=== PATIENT | male | born 1945 | race Caucasian/White ===

== ENCOUNTER 2016-11-14 07:30 | Inpatient (IN) | payer BC ==
--- NOTE | 2016-11-09 01:15 | HP ---
HISTORY AND PHYSICAL: DATE OF SURGERY/ADMISSION: 11/14/16 PROCEDURE: Right total knee arthroplasty. HISTORY OF PRESENT ILLNESS: Mr. Vences is a 71-year-old gentleman with complaints of right knee pain secondary to advanced osteoarthritis. He has failed conservative management and has elected to proceed with the right total knee arthroplasty, which is scheduled on 11/14/[address] Lara. PAST MEDICAL HISTORY: 1. Chronic kidney disease. 2. Hypertension. 3. Anemia. 4. High cholesterol. 5. Hypothyroidism. 6. Acid reflux. 7. Skin cancer. PAST SURGICAL HISTORY: 1. Thyroid ablation. 2. Tonsillectomy. 3. Lumbar diskectomy. 4. Sinus surgery. 5. Cataract removal. 6. Quadriceps tendon repair on the left. CURRENT MEDICATIONS: 1. AcipHex. 2. Aspirin. 3. Avodart. 4. Calcitriol. 5. Diltiazem. 6. Ferrous sulfate. 7. Levoxyl. 8. Nasonex. 9. Renvela. 10. Simvastatin. 11. Uroxatral. 12. Zantac. 13. Konsyl fiber. 14. AREDS softgel. 15. Vitamin B12. ALLERGIES: To SULFA, JEMIMA INHIBITORS, ANGIOTENSIN RECEPTOR BLOCKERS, IVP DYE, and ELAVIL. FAMILY HISTORY: Heart disease, prostate cancer, kidney disease, breast cancer, pituitary cancer. SOCIAL HISTORY: He is a 71-year-old gentleman. He lives with his . He does not smoke. He rarely uses alcohol. He denies the use of drugs. 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 REVIEW OF SYSTEMS: A complete 14-point review of systems with the patient is positive for chronic kidney disease and anemia. He denies history of DVT, PE, anesthesia problems, MRSA, hepatitis C, or HIV. PHYSICAL EXAMINATION GENERAL: He is well developed, well nourished, in no acute distress. VITAL SIGNS: He stands 5 feet 11 inches tall, weighs 209 pounds. His blood pressure is 144/74. His heart rate is 65. HEENT: Normocephalic, atraumatic. NECK: Supple. No palpable lymph nodes. Trachea is midline. CARDIO: Regular rate and rhythm. Strong S1, S2. No murmurs, gallops, or rubs. No peripheral edema. PULMONARY: The lungs are clear to auscultation bilaterally. No wheezes, rhonchi, or rale. ABDOMEN: Soft, nontender, nondistended. MUSCULOSKELETAL: Right lower extremity, the skin is intact. He has moderate joint effusion. Tenderness over the medial and lateral joint line. Full range of motion. He has 2+ dorsalis pedis pulses. Intact sensation with pinprick and light touch over both legs and feet. NEUROLOGIC: He is alert and oriented x3. Cranial nerves II through XII are intact. ASSESSMENT AND PLAN: Mr. Vences is a 71-year-old gentleman with advanced osteoarthritis of his right knee. He has failed conservative management and has elected to proceed with a right knee arthroplasty, which is scheduled for with Dr. Lara. Dr. Lara discussed the risks and benefits of the surgery at today's visit and all of his questions were answered. Coumadin and Colace were sent to his pharmacy for postoperative DVT prophylaxis and for opioid-induced constipation, for pain control oxycodone 5 mg was sent to his pharmacy. He will follow up with Dr. Lara 10 to 14 days after the surgery. AKIN BENSON [id number]/[facility] #: [id number] RASHIDA
[~2016-11-14 07:30] MED LIST: Buffered Lidocaine 1% SYR 3ML* 3 ML/SYR SYRINGE INTRADERM ONE; Metoclopramide TAB* 10 MG PO ONE; NS 0.9% 1000 ML* 1,000 ML IV SCH; Sodium Citrate/Citric Acid* 15 ML UDC PO ONE
[2016-11-14] MEDS ORDERED: Sodium Citrate/Citric Acid* 15 ML UDC ONE (08:21)
[2016-11-14] MEDS ORDERED: ceFAZolin 2 GM PREMIX (*) 2 GM/50 ML BAG IVPB ONE (08:21)
[2016-11-14] MEDS ORDERED: Metoclopramide TAB* 10 MG ONE (08:21)
[2016-11-14] MEDS ORDERED: Propofol* 500 MG/50 ML BTL ONE (09:30)
[2016-11-14] MEDS ORDERED: Propofol* 10 MG/ML 20 ML BTL IV PUSH ONE (09:30)
[2016-11-14] MEDS ORDERED: Bupivacaine 0.5% SDV PF* 30 ML VIAL ONE ×2 (09:30→11:56)
[2016-11-14] MEDS ORDERED: Lidocaine 2% PF * 5 ML VIAL ONE (09:30)
[2016-11-14] MEDS ORDERED: ROPIVACAINE 5 MG/ML 30 ML BTL (0.5%) ONE (09:30)
[2016-11-14] MEDS ORDERED: Ondansetron INJ* 2 MG/ML VIAL ONE ×2 (09:30→14:14)
[2016-11-14] MEDS ORDERED: fentaNYL* 50 MCG/ML 2 ML VIAL (100 MCG VIAL) ONE (09:30)
[2016-11-14] MEDS ORDERED: KETAMINE HCL* 50 MG/ML 10 ML VIAL ONE (09:30)
[2016-11-14] MEDS ORDERED: Dexamethasone IV* 4 MG/ML 1 ML (4 MG) ONE (09:30)
[2016-11-14] MEDS ORDERED: Midazolam* 1 MG/ML 5 ML VIAL (5 MG) ONE (09:31)
[2016-11-14] MEDS ORDERED: Phenylephrine INJ* 10 MG/ML 1 ML VIAL (10 MG) ONE (09:31)
[2016-11-14] MEDS ORDERED: Bupivacaine 0.5% W/EPI SDV* 30 ML VIAL ONE (09:57)
[2016-11-14] MEDS ORDERED: Morphine PF AMP (0.5MG/ML)* 5 MG/10 ML AMP ONE (10:19)
[2016-11-14] MEDS ORDERED: Ondansetron INJ* 2 MG/ML VIAL IV PRN ×2 (12:01→12:04)
[2016-11-14] MEDS ORDERED: fentaNYL* 50 MCG/ML 2 ML VIAL (100 MCG VIAL) IV PRN (12:01)
[2016-11-14] MEDS ORDERED: Phenylephrine INJ* 50 MG in NS 0.9% 250 ML* 245 ML IV PRN (12:01)
[2016-11-14] MEDS ORDERED: Naloxone* 0.4 MG/ML 1 ML VIAL IV PRN (12:04)
[2016-11-14] MEDS ORDERED: oxyCODONE/Acetamin 5/325 MG* TAB PO PRN ×2 (12:04)
[2016-11-14] MEDS ORDERED: diPHENhydraMINE IV* 50 MG/ML 1 ml VIAL (BENADRYL) IV PRN ×2 (12:04→13:03)
[2016-11-14] MEDS ORDERED: Bisacodyl SUPP* 10 MG SUPP PR PRN (13:03)
[2016-11-14] MEDS ORDERED: Acetaminophen TAB* 325 MG PO PRN (13:03)
[2016-11-14] MEDS ORDERED: Polyethylene Glycol 3350* 17 GM PACKET PO PRN (13:03)
[2016-11-14] MEDS ORDERED: Magnesium Hydroxide LIQ* 30 ML UDC PO PRN (13:03)
--- NOTE | 2016-11-14 14:09 | RAD ---
HISTORY: Status post right total knee arthroplasty COMPARISONS: August 11, 2016 VIEWS: 2, Frontal and lateral views of the right knee FINDINGS: BONE DENSITY: Normal. BONES: The patient is status post right knee arthroplasty. There is no appreciable hardware failure or osteolysis. JOINTS: The patient is status post right knee arthroplasty ALIGNMENT: There is no dislocation. SOFT TISSUES: There is post surgical change to the soft tissue OTHER FINDINGS: None. IMPRESSION: STATUS POST RIGHT KNEE ARTHROPLASTY
[2016-11-14] MEDS: Clindamycin 600 MG IVPREMIX(* 600 MG/50 ML SDV IV SCH (16:30)
[2016-11-14] MEDS ORDERED: Warfarin TAB(*) 6 MG PO ONE (17:00)
[2016-11-14] MEDS: Sevelamer TAB* 800 MG PO SCH (17:33)
[2016-11-14] MEDS: Atorvastatin* 20 MG TAB PO SCH (17:35)
[2016-11-14] MEDS: Finasteride TAB* 5 MG PO SCH (17:35)
[2016-11-14] MEDS: Cyanocobalamin TAB* 500 MCG PO SCH (17:35)
[2016-11-14] MEDS: Calcitriol CAP* 0.25 MCG PO SCH (17:35)
[2016-11-14] MEDS: ALFUZOSIN 10 MG PO SCH (17:36)
[2016-11-14] MEDS ORDERED: DiMENhydriNATE IV* 50 MG/ML VIAL IV PUSH PRN (20:44)
[2016-11-14] MEDS: Docusate CAP* 100 MG PO SCH (20:55)
[2016-11-14] MEDS ORDERED: DiMENhydriNATE IV* 50 MG/ML VIAL IV PUSH ONE (21:00)
[2016-11-15] MEDS: Clindamycin 600 MG IVPREMIX(* 600 MG/50 ML SDV IV SCH ×2 (00:56→09:50)
[2016-11-15] MEDS ORDERED: Morphine INJ* 2 MG/ML 1 ML CARPUJECT IV PRN (02:30)
[2016-11-15] MEDS ORDERED: Ondansetron INJ* 2 MG/ML VIAL IV PRN (02:30)
[2016-11-15] MEDS ORDERED: Ondansetron TAB* 4 MG PO PRN (02:30)
[2016-11-15] MEDS: oxyCODONE/Acetamin 5/325 MG* TAB PO PRN ×4 (03:00→16:14)
[2016-11-15 07:09] LABS: Hematocrit 25 % (42-52); Hemoglobin 8.2 g/dl (14.0-18.0)
[2016-11-15 07:23] LABS: BUN/Creatinine Ratio 10.6 (8-20); Calcium 8.8 mg/dL (8.6-10.3); EGFR African American 19.4 (>60); Potassium 4.8 mmol/L (3.5-5.0)
[2016-11-15] MEDS: Sevelamer TAB* 800 MG PO SCH ×3 (07:46→16:13)
--- NOTE | 2016-11-15 07:50 | PN ---
Progress Note - Progress Note SOAP: Subjective: Pt. reports pain is controlled. He is drinking and eating. Objective: RLE - drain removed, tip intact with 300 cc ss drainage. distally +df/pf, full sens lt, 2+ dp pulse. Vital Signs: Temp Pulse Resp BP Pulse Ox 98.5 F 68 16 136/64 97 11/15/16 07:24 11/15/16 07:24 11/15/16 07:44 11/15/16 07:24 11/15/16 07:24 Laboratory Results - last 24 hr 11/15/16 11/15/16 11/15/16 06:52 06:54 06:54 Hgb 8.2 L Hct 25 L INR (Anticoag Therapy) 0.94 Sodium 138 Potassium 4.8 Chloride 108 Carbon Dioxide 22 Anion Gap 8 BUN 42 H Creatinine 3.97 H Est GFR ( Amer) 19.4 Est GFR (Non-Af Amer) 15.0 BUN/Creatinine Ratio 10.6 Glucose 123 H Calcium 8.8 Assessment: 71 yo M pod 1 s/p RTKA Plan: wbat rle pt/ot - mobilize today nuno removed this am drain removed xrays satisfactory Dr. Lozano following patient and will decide on fluid management today in the setting of chronic renal failure.
[2016-11-15] MEDS ORDERED: Levothyroxine TAB* 150 MCG TAB PO SCH (09:00)
[2016-11-15] MEDS: Diltiazem CD CAP* 180 MG PO SCH (09:49)
[2016-11-15] MEDS: Docusate CAP* 100 MG PO SCH ×2 (09:49→20:26)
[2016-11-15] MEDS: Vitamin THERAPEUTIC TAB PO SCH (10:34)
[2016-11-15] MEDS ORDERED: Enoxaparin(*) 30 MG/0.3 ML SYR SUBCUT SCH (12:00)
[2016-11-15] MEDS: Heparin VIAL(*) 5000 UNITS/ML VIAL (FIVE THOUSAND) SUBCUT SCH ×2 (12:08→20:26)
--- NOTE | 2016-11-15 12:53 | OP ---
DATE OF OPERATION: 11/14/16 - ROOM #347 DATE OF : 47 SURGEON: Amelie Lara MD INSTRUMENTAL MUSIC TEACHER: AKIN Vincent ANESTHESIOLOGIST: Bronson Vazquez MD ANESTHESIA: Spinal PRE-OPERATIVE DIAGNOSIS: Severe end-stage degenerative osteoarthritis of the right knee joint. POST-OPERATIVE DIAGNOSIS: Severe end-stage degenerative osteoarthritis of the right knee joint. OPERATIVE PROCEDURE: Right total knee arthroplasty. TOURNIQUET TIME: 51 minutes. EBL: 250 cc. COMPLICATIONS: None. SPECIMEN: Bone and cartilage from the right knee joint sent to pathology. HARDWARE USED: [employer] cemented total knee arthroplasty hardware for the femur and Oxinium size 7 right femoral component posterior stabilized. For the tibia, size 5 right tibial base plate. For the insert, a 9 mm posterior stabilized articular insert, and for the patella 38, 3-peg all poly patella. BRIEF HISTORY/INDICATION: Mr. Vences is a 71-year-old gentleman with years of increasingly severe right knee pain. He failed conservative treatment with the anti-inflammatories, pain medication, intra-articular injections, physical therapy, and brace wear. Radiographs confirmed [id number] arthritis. The patient elected to undergo right total knee arthroplasty due to continued pain and decreased quality of life. Informed consent was obtained from the patient. He understood the risks of the surgery included but were not limited to bleeding, infection, damage to nearby structures, continued pain, need for further surgery, intraoperative fracture, nerve palsy, hardware failure or loosening, stroke, heart attack, blood clot, and . The patient also understood that his chronic renal failure did put him at increased risk for further renal problems. He was cleared for surgery by his digital performance analyst and primary care physician. INTRAOPERATIVE FINDINGS: Intraoperatively, the patient was noted to have severe tricompartmental arthritis with loss of cartilage and exposed subchondral bone. He was noted to have osteopenia throughout the case. DESCRIPTION OF PROCEDURE: Mr. Vences was identified in the preanesthesia unit. His right lower extremity was marked as the correct operative site. Informed consent was signed and placed in the chart. The patient was taken to the operating room and placed under spinal anesthesia with an adductor nerve block. Porras catheter was placed. Thigh high tourniquet was placed on the right thigh. The right lower extremity was prepped and dapped in the usual sterile fashion. Preop time-out was made to correctly identify the patient's side and site. Appropriate perioperative antibiotics were given within 1 hour of incision. Tourniquet was inflated and total tourniquet time for this procedure was 51 minutes. A 10 blade was used to make a 12-cm midline incision and extended down to the extensor fascia. A new 10 blade was used to make a standard medial parapatellar arthrotomy. The patella was subluxed laterally. Electrocautery was used to subperiosteally elevate soft tissue along the superomedial tibia to the mid sagittal plane. Any osteophytes were carefully removed. The knee was flexed up. The anterior horn of the lateral meniscus and ACL was sharply released. A drill was used to enter the distal femur. Intramedullary distal femoral cutting guide was pinned into proper position on the distal femur. The oscillating saw was used to make the distal femoral cut. Next, the external rotation guide was placed on the distal femur and the distal femur was sized to a size 7. Size 7 multi-cutting jig was pinned on the distal femur. Oscillating saw was used to make the appropriate 4 chamfer cuts. Any bony fragments were carefully removed. The PCL was completely released. The tibia was subluxed anteriorly. Extramedullary tibial cutting guide was pinned on the proximal tibia. Oscillating saw was used to make the proximal tibial cut. The bone was carefully removed. The knee was brought out into full extension. A spacer block had good fit. There was good medial and lateral ligament balancing. Good flexion and extension gap balancing. The knee was flexed up. [employer]ina casino host was placed both medially and laterally. Any remaining meniscus was carefully removed using electrocautery. Curved osteotome was used to remove osteophytes from the posterior femoral condyles. A size 7 right femoral trial was impacted on to the distal femur. This trial had good fit. The box for the posterior stabilized implant was prepared using a reamer and box cut osteotome. A size 5 tibial trial with 9-mm insert trial was placed. The knee was taken through a range of motion and noted to have full extension and 125 degrees of flexion. Good patellofemoral tracking. The patella was everted. A 9-mm of patellar bone and cartilage was carefully removed from the patella. The patella was sized to a size 38. Three peg holes were drilled through the size 38 guide. A 38 trial patella was placed and the knee was taken through a range of motion. There was good patellofemoral tracking. All trials were carefully removed. The tibia was subluxed anteriorly and sized to a size 5. Proximal tibia was prepared using a size 5 keel punch. All bony cut surfaces were copiously irrigated with sterile saline and dried. The final implants were cemented into place starting with the tibia followed by the femur and last the patella. A 9-mm insert trial was placed and the knee was brought out into full extension. The cement was allowed to fully cure and the tourniquet was turned down at 51 minutes. Once the cement was fully cured, the insert trial was removed. Electrocautery was used to obtain meticulous hemostasis. Any excess cement was carefully removed. Final insert chosen was a 9-mm posterior stabilized articular insert. This was locked into position on the tibial tray. Stability of the insert was checked and rechecked and noted to be stable. The knee was copiously irrigated with sterile saline. The extensor mechanism was closed over a medium Hemovac drain using interrupted #1 Vicryl. The rest of the incision was closed in a layered fashion using 0 and 2-0 Vicryl. Skin was closed using running 3-0 nylon suture. Sterile Xeroform, 4x4's, and Webril were used to cover the incision. Eris wrap and cold pack were placed over this. The patient's anesthesia was reversed without difficulty. He was taken to the PACU in stable condition. Intended weightbearing will be weightbearing as tolerated. Intended DVT prophylaxis will be Coumadin with a Lovenox bridge. [id number]/[facility] #: [id number] RASHIDA
[2016-11-15] MEDS ORDERED: Ferrous Sulfate TAB* 325 MG PO SCH (13:11)
[2016-11-15] MEDS: oxyCODONE TAB* 5 MG TAB PO PRN ×3 (13:28→23:52)
[2016-11-15] MEDS ORDERED: Warfarin TAB(*) 4 MG PO ONE (17:00)
[2016-11-15] MEDS ORDERED: Warfarin TAB(*) 6 MG PO SCH (17:00)
[2016-11-15] MEDS: Cyanocobalamin TAB* 500 MCG PO SCH (17:56)
[2016-11-15] MEDS: Atorvastatin* 20 MG TAB PO SCH (17:56)
[2016-11-15] MEDS: ALFUZOSIN 10 MG PO SCH (17:56)
[2016-11-15] MEDS: Calcitriol CAP* 0.25 MCG PO SCH (17:57)
[2016-11-15] MEDS: Finasteride TAB* 5 MG PO SCH (17:57)
[2016-11-16] MEDS ORDERED: Gaviscon CHEW TAB* 1 TAB PO PRN ×2 (02:30→08:27)
[2016-11-16] MEDS ORDERED: Famotidine TAB* 20 MG PO PRN (02:30)
[2016-11-16] MEDS: oxyCODONE/Acetamin 5/325 MG* TAB PO PRN ×5 (04:07→21:15)
[2016-11-16] MEDS: Heparin VIAL(*) 5000 UNITS/ML VIAL (FIVE THOUSAND) SUBCUT SCH ×3 (04:08→21:16)
[2016-11-16] MEDS: Levothyroxine TAB* 150 MCG TAB PO SCH (06:21)
[2016-11-16 07:08] LABS: Hematocrit 23 % (42-52); Hemoglobin 7.6 g/dl (14.0-18.0)
[2016-11-16 07:17] LABS: BUN/Creatinine Ratio 10.9 (8-20); Calcium 8.8 mg/dL (8.6-10.3); EGFR African American 17.2 (>60); EGFR Non-African American 13.4 (>60); Potassium 4.1 mmol/L (3.5-5.0)
[2016-11-16] MEDS: Sevelamer TAB* 800 MG PO SCH ×3 (08:11→17:54)
[2016-11-16] MEDS: Diltiazem CD CAP* 180 MG PO SCH (08:11)
[2016-11-16] MEDS: Docusate CAP* 100 MG PO SCH ×2 (08:12→21:16)
--- NOTE | 2016-11-16 08:25 | PN ---
Progress Note - Progress Note SOAP: Subjective: []Patient seen at bedside. present. Denies lightheadedness but still having heartburn symptoms. Requesting 2 tablets of gaviscon which has been helpful in the past. c/o burning knee pain but tolerable. Objective: [] Vital Signs Temp 98.3 F 11/16/16 07:23 Pulse 76 11/16/16 07:23 Resp 18 11/16/16 08:12 BP 161/63 11/16/16 07:23 Pulse Ox 90 11/16/16 07:23 Intake & Output 11/15/16 11/16/16 11/16/16 18:59 06:59 18:59 Intake Total 2050 600 Output Total 775 1395 250 Balance 1275 -795 -250 Intake: IV Fluids 610 ABX - CLINDAMYCIN 60 LR 550 Oral 1440 600 Output: Urine 425 1395 250 Porras 350 Laboratory Results - last 24 hr 11/16/16 11/16/16 11/16/16 06:34 06:35 06:35 Hgb 7.6 L Hct 23 L INR (Anticoag Therapy) 1.22 H Sodium 138 Potassium 4.1 Chloride 108 Carbon Dioxide 22 Anion Gap 8 BUN 48 H Creatinine 4.39 H Est GFR ( Amer) 17.2 Est GFR (Non-Af Amer) 13.4 BUN/Creatinine Ratio 10.9 Glucose 102 H Calcium 8.8 Right knee dressings removed Incision is benign new dressings applied calf NT and soft Dexter's negative +DF/PF neuro intact Assessment: []s/p Right total knee arthroplasty POD #2 post op GERD Post operative anemia superimposed with chronic anemia status Plan: []PT/OT WBAT Gaviscon dose change Transfuse 2 units PRBC today Home tomorrow if medically stable
[2016-11-16] MEDS: Vitamin THERAPEUTIC TAB PO SCH (09:27)
[2016-11-16] MEDS ORDERED: Furosemide IV* 10 MG/ML VIAL (40 MG) IV ONE (10:00)
[2016-11-16 16:13] LABS: Hematocrit 24 % (42-52)
[2016-11-16] MEDS ORDERED: Warfarin TAB(*) 4 MG PO ONE (17:00)
[2016-11-16] MEDS: Calcitriol CAP* 0.25 MCG PO SCH (17:12)
[2016-11-16] MEDS: ALFUZOSIN 10 MG PO SCH (17:12)
[2016-11-16] MEDS: Atorvastatin* 20 MG TAB PO SCH (17:13)
[2016-11-16] MEDS: Finasteride TAB* 5 MG PO SCH (17:13)
[2016-11-16] MEDS: Cyanocobalamin TAB* 500 MCG PO SCH (17:13)
[2016-11-17] MEDS: Levothyroxine TAB* 150 MCG TAB PO SCH (05:17)
[2016-11-17] MEDS: Heparin VIAL(*) 5000 UNITS/ML VIAL (FIVE THOUSAND) SUBCUT SCH ×2 (05:17→13:06)
[2016-11-17] MEDS: oxyCODONE/Acetamin 5/325 MG* TAB PO PRN ×3 (05:22→13:05)
[2016-11-17 07:15] LABS: Hematocrit 27 % (42-52); Hemoglobin 9.1 g/dl (14.0-18.0)
[2016-11-17 07:24] LABS: Calcium 8.7 mg/dL (8.6-10.3); EGFR African American 17.3 (>60); EGFR Non-African American 13.4 (>60)
[2016-11-17] MEDS: Diltiazem CD CAP* 180 MG PO SCH (07:58)
[2016-11-17] MEDS: Docusate CAP* 100 MG PO SCH (07:58)
[2016-11-17] MEDS: Sevelamer TAB* 800 MG PO SCH ×2 (07:58→13:05)
--- NOTE | 2016-11-17 11:04 | PN ---
Progress Note - Progress Note SOAP: Subjective: [71 y/o M s/p Right total knee arthroplasty POD #3. Patient feelign well, pain better controlled with pain medication, decreased GERD symptoms when taking with food. + ambulatory, working well with PT. No complaints overnight, VSS ] Objective: [General- Well appaerin, resting comfortably, NAD MSK- Incision C/D/I, no drainge on dressing, re-dressed patietn shown how to apply JEMIMA. + dorsiflexion/ plantarflexion, PT 2+ b/l LE minimal edema over R knee, R LE's, neg homans, sensatino to light touch grossly intact. ] Laboratory Results - last 24 hr 11/16/16 11/16/16 11/17/16 06:32 16:07 06:28 Hgb 8.0 L 9.1 L Hct 24 L 27 L INR (Anticoag Therapy) Sodium Potassium Chloride Carbon Dioxide Anion Gap BUN Creatinine Est GFR ( Amer) Est GFR (Non-Af Amer) BUN/Creatinine Ratio Glucose Calcium Blood Type A Positive Antibody Screen Negative Crossmatch See Detail 11/17/16 11/17/16 06:28 06:28 Hgb Hct INR (Anticoag Therapy) 1.41 H Sodium 139 Potassium 4.0 Chloride 109 Carbon Dioxide 21 L Anion Gap 9 BUN 48 H Creatinine 4.38 H Est GFR ( Amer) 17.3 Est GFR (Non-Af Amer) 13.4 BUN/Creatinine Ratio 11.0 Glucose 87 Calcium 8.7 Blood Type Antibody Screen Crossmatch Vital Signs Temp 97.7 F 11/17/16 07:28 Pulse 66 11/17/16 07:28 Resp 16 11/17/16 09:18 BP 137/56 11/17/16 07:28 Pulse Ox 93 11/17/16 07:28 Intake & Output 11/16/16 11/17/16 11/17/16 18:59 06:59 18:59 Intake Total 1208 1366 240 Output Total 1610 1200 650 Balance -402 166 -410 Intake: IV Fluids 50 50 NS 50 50 IVPB 336 RBCs 336 Oral 840 980 240 Packed Cells 318 Output: Urine 1610 1200 650 Other: Estimated Void Small Estimated Stool Amount Medium Assessment: [71 y/o M s/p Right total knee arthroplasty POD #3.] Plan: [- Acute anemia- Appropriate response with 2 Units yesterday, stable. Symptoms improved. - DVT prophylaxis- Lovenox today, increase coumadin to 6mg, dose over weekend - DC today to home, follow up with Dr. Lara within 12 days. - Continue PT/ OT as shown. - Continue pain regimen - Follow up with DR. Lozano per her orders. ] Active Medications Generic Name Dose Route Start Last Admin Trade Name Freq PRN Reason Stop Dose Admin Acetaminophen 650 mg 11/14/16 13:03 Tylenol Tab* PO Q4H PRN PAIN OR TEMPERATURE Al Hydroxide/Mg Trisilicate 2 tab.chew 11/16/16 08:27 11/16/16 21:19 Gaviscon Chew Tab* PO 2 tab.chew Q4H PRN Administration HEARTBURN Alfuzosin HCl 10 mg 11/14/16 18:00 11/16/16 17:12 Uroxatral (Nf) PO 10 mg QPM LIZZ Administration Atorvastatin Calcium 20 mg 11/14/16 18:00 11/16/16 17:13 Lipitor* PO 20 mg QPM LIZZ Administration Bisacodyl 10 mg 11/14/16 13:03 Dulcolax Supp* AK DAILY PRN constipation Calcitriol 0.25 mcg 11/14/16 18:00 11/16/16 17:12 Rocaltrol Cap* PO 0.25 mcg QPM LIZZ Administration Cyanocobalamin 1,000 mcg 11/14/16 18:00 11/16/16 17:13 Vitamin B12 Tab* PO 1,000 mcg QPM LIZZ Administration Diltiazem HCl 360 mg 11/15/16 09:00 11/17/16 07:58 Cardizem Cd Cap* PO 360 mg QAM LIZZ Administration Diphenhydramine HCl 12.5 mg 11/14/16 13:03 Benadryl Iv* IV Q6H PRN PRURITIS Docusate Sodium 100 mg 11/14/16 21:00 11/17/16 07:58 Colace Cap* PO 100 mg BID LIZZ Administration Famotidine 20 mg 11/16/16 02:30 11/16/16 04:07 Pepcid Tab* PO 20 mg DAILY PRN Administration HEARTBURN Ferrous Sulfate 325 mg 11/15/16 13:11 11/15/16 13:28 Ferrous Sulfate Tab* PO 325 mg WE LIZZ Administration Finasteride 5 mg 11/14/16 18:00 11/16/16 17:13 Proscar Tab* PO 5 mg QPM LIZZ Administration Protocol Heparin Sodium (Porcine) 5,000 units 11/15/16 12:00 11/17/16 05:17 Heparin Vial(*) SUBCUT 5,000 units Q8H LIZZ Administration Lactated Ringer's 1,000 mls @ 100 mls/hr 11/14/16 14:00 11/15/16 03:00 Lactated Ringers 1000 Ml Bag* IV 100 mls/hr PER RATE LIZZ Administration Lactulose 30 ml 11/14/16 13:03 11/17/16 07:58 Lactulose* PO 30 ml Q6H PRN Administration constipation Levothyroxine Sodium 150 mcg 11/16/16 06:00 11/17/16 05:17 Synthroid Tab* PO 150 mcg 0600 LIZZ Administration Morphine Sulfate 2 mg 11/15/16 02:30 Morphine Inj (Syringe)* IV Q2H PRN PAIN Ondansetron HCl 4 mg 11/15/16 02:30 Zofran Inj* IV Q6H PRN nausea Ondansetron HCl 4 mg 11/15/16 02:30 Zofran Tab* PO Q6H PRN NAUSEA Oxycodone HCl 10 mg 11/15/16 02:30 11/15/16 23:52 Roxycodone Tab* PO 10 mg Q4H PRN Administration SEVERE PAIN Oxycodone/Acetaminophen 1 tab 11/15/16 02:30 11/17/16 05:22 Percocet 5/325 Tab* PO 1 tab Q3H PRN Administration PAIN - MODERATE Oxycodone/Acetaminophen 2 tab 11/15/16 02:30 11/17/16 09:18 Percocet 5/325 Tab* PO 2 tab Q3H PRN Administration PAIN - MODERATE Pharmacy Profile Note 1 note 11/15/16 17:00 11/16/16 17:13 Coumadin Daily Reminder* FOLLOW UP 1 note 1700 LIZZ Administration Polyethylene Glycol/Electrolytes 17 gm 11/14/16 13:03 Miralax* PO DAILY PRN Constipation Sevelamer Carbonate 1,600 mg 11/14/16 16:30 11/17/16 07:58 Renvela Tab* PO 1,600 mg TID AC LIZZ Administration
[2016-11-17 14:11] VITALS: BP 154/66
--- NOTE | 2016-11-20 01:21 | DS ---
DISCHARGE SUMMARY: DATE OF ADMISSION: 11/14/16 DATE OF DISCHARGE: 11/17/16 CHIEF COMPLAINT: 1. Right knee end-stage osteoarthritis. 2. Chronic kidney disease. 3. Hypertension. 4. Anemia. 5. Elevated cholesterol. 6. Hypothyroidism. 7. Acid reflux. 8. History of skin cancer. DISCHARGE DIAGNOSES: 1. Status post right total knee arthroplasty. 2. Chronic kidney disease. 3. Hypertension. 4. Anemia. 5. Elevated cholesterol. 6. Hypothyroidism. 7. Acid reflux. 8. History of skin cancer. PROCEDURE: Right total knee arthroplasty. CONSULTATIONS: 1. Physical therapy. 2. Occupational therapy. 3. Medicine. BRIEF HISTORY: The patient is a very pleasant 71-year-old gentleman with severe end-stage degenerative osteoarthritis of the right knee, who failed conservative treatment and elected to undergo a right total knee arthroplasty on 11/14/[address] Amelie Lara. HOSPITAL COURSE: The patient was admitted to [facility] on 11/14/16 , where he underwent a right total knee arthroplasty postoperatively. He recovered on the surgical short stay unit. His Porras was removed on postoperative day 2, and he was voiding on his own without difficulty. He was advanced to a regular diet, and his pain was controlled with p.o. Percocet. He was restarted on his home medications. His labs and vital signs remained stable. He was able to bear weight as tolerated on the right lower extremity. He advanced appropriately with physical therapy and occupational therapy. His DVT prophylaxis was managed with Lovenox and Coumadin until he reached a therapeutic INR. By post-operative day #3, he was orthopedically and medically stable for discharge to go home with home services. PHYSICAL EXAMINATION: General: Well appearing, in no acute distress. Alert and oriented x3. Musculoskeletal: Incision over right knee, clean, dry and intact. No drainage on dressing. how to apply Eris bandage. Positive dorsiflexion and plantarflexion of the right ankle. Posterior tibial pulses 2+ bilaterally. Minimal edema over the right knee. Negative Homans' sign bilaterally. Sensation to light touch grossly intact. LABORATORY DATA: On date of discharge, hemoglobin and hematocrit of 9.1/27 and INR of 1.41, creatinine and BUN of 4.38 and 48. CONDITION ON DISCHARGE: Good. DISCHARGE INSTRUCTIONS: Mr. Vences is a very pleasant 71-year-old gentleman postoperative day #3 status post right total knee arthroplasty, which was uncomplicated. He is orthopedically and medically stable to go home with home services at discharge. His labs and vital signs remained stable. He will restart his home medications. He will take 6 mg of Coumadin on the , 4 mg on the , and 2 mg on the with a repeat INR check on 11/20/16. He will take Colace up to 3 times a day as needed for constipation. He will continue with p.o. Percocet for pain control; however, will take this with meals to avoid GERD and nausea. He will follow up with Dr. Lara in approximately 10 to 14 days for incision check and suture removal. He will continue care with Dr. Lozano with regards to his chronic kidney disease. He was instructed to go immediately to the ER should he develop chest pain or shortness of breath. If he develops fever, increasing pain, or redness, he is to call Dr. Lara's office immediately. AKIN CHAVIS [id number]/[facility] #: [id number] RASHIDA
== END 2016-11-17 16:00 | disposition home or self-care (01) | DRG 302 ==
LOC: AA 07:57 → SSU 15:40
PROVIDERS: ADMIT Orthopaedic Surgery Adult Reconstructive Orthopaedic Surgery; ATTEND Orthopaedic Surgery Adult Reconstructive Orthopaedic Surgery
PROC: 0SRC0J9 Replacement of Right Knee Joint with Synthetic Substitute, Cemented, Open Approach (ICD-10-PCS; principal; 2016-11-14 11:00)
PROC: 30233N1 Transfusion of Nonautologous Red Blood Cells into Peripheral Vein, Percutaneous Approach (ICD-10-PCS; 2016-11-16)
DX: M17.11 Unilateral primary osteoarthritis, right knee (principal); D53.9 Nutritional anemia, unspecified; I12.9 Hypertensive chronic kidney disease with stage 1 through stage 4 chronic kidney disease, or unspecified chronic kidney disease; N18.9 Chronic kidney disease, unspecified; E03.9 Hypothyroidism, unspecified; K21.9 Gastro-esophageal reflux disease without esophagitis; Z85.828 Personal history of other malignant neoplasm of skin; Z98.49 Cataract extraction status, unspecified eye; Z88.2 Allergy status to sulfonamides; Z88.8 Allergy status to other drugs, medicaments and biological substances; Z80.42 Family history of malignant neoplasm of prostate; Z80.3 Family history of malignant neoplasm of breast; Z80.8 Family history of malignant neoplasm of other organs or systems; Z82.49 Family history of ischemic heart disease and other diseases of the circulatory system; Z84.1 Family history of disorders of kidney and ureter; M85.861 Other specified disorders of bone density and structure, right lower leg; M25.761 Osteophyte, right knee; N40.0 Benign prostatic hyperplasia without lower urinary tract symptoms; E21.3 Hyperparathyroidism, unspecified; E78.00 Pure hypercholesterolemia, unspecified
CPT/HCPCS: 36415; 80048; 85014; 85018; 85610; 86850; 86900; 86901; 86922; 88305; 88311; 94760; A9270-GY; C1776; J0690; J1100; J1240; J1644; J1940; J2250; J2405; J2704; J2795; J3010; P9016; P9040

== ENCOUNTER 2018-01-30 07:56 | Day surgery (SDC) | payer BC ==
--- NOTE | 2018-01-29 12:08 | HP ---
CC: Dr. Duran; Dr. Da Silva; Dr. Luz Maria Lozano* DATE OF ADMISSION: 01/30/2018. This patient is scheduled for Same Day Surgery admission by Dr. Duran. DATE OF PREOPERATIVE HISTORY AND PHYSICAL EXAMINATION: 01/29/2018. ATTENDING SURGEON: Dr. Khai Duran* (dictated by Rebecca Romero NP). CHIEF COMPLAINT: Chronic kidney disease. HISTORY OF PRESENT ILLNESS: The patient is a 73-year-old male, recently evaluated by Dr. Duran for peritoneal dialysis catheter placement. Mr. Vences is followed by Dr. Da Silva and there is concern for worsening creatinine levels. Serum creatinine on January 15 was 5.09, compared to 4.[address] Duran met with the patient and his . They have done research and understand the difference between hemodialysis and peritoneal dialysis. At this time, the patient will undergo laparoscopic placement of a buried peritoneal dialysis catheter and Dr. Duran discussed the nature of the surgical procedure, the relevant risks and benefits, and today I reviewed the expected postoperative care and recovery. The patient has had a chance to ask questions and stated that he understands the information and is satisfied with the answers given to his questions. He will sign surgical consent on the day of surgery. PAST MEDICAL HISTORY: Significant for chronic kidney disease, hypertension, anemia of chronic disease, reflux esophagitis, and macular degeneration. PAST SURGICAL HISTORY: Right knee replacement 2017, tonsillectomy, lumbar diskectomy, thyroid ablation, sinus surgery, Zenker's diverticulum repair, left quad tendon repair, and cataract surgery. MEDICATIONS: 1. Aranesp monthly as needed. 2. AcipHex 20 mg p.o. every other day. 3. Aspirin 81 mg p.o. daily. 4. Avodart 0.5 mg p.o. daily. 5. Calcitriol 0.25 mcg p.o. daily. 6. Diltiazem CD 360 mg p.o. daily. 7. Levoxyl 150 mcg p.o. daily. 8. Nasonex 50 mcg per actuation 2 sprays each nostril daily. 9. Renvela 800 mg two tablets 3 times a day with meals. 10. Simvastatin 40 mg p.o. at bedtime. 11. Uroxatral 10 mg one tablet p.o. daily. 12. Zantac 150 mg p.o. daily. 13. Vitamin B12 daily. 14. AREDS soft gel 2 daily. 15. Konsyl fiber. ALLERGIES: LISINOPRIL CAUSED RED BLOOD CELL COUNTS TO DROP; he is also SENSITIVE TO SULFA ANTIBIOTICS WITH AN UNSPECIFIED REACTION, JEMIMA INHIBITORS, ANGIOTENSIN RECEPTOR BLOCKERS, IVP DYE, and ELAVIL. FAMILY HISTORY: No known anesthesia complications, bleeding tendencies, or clotting disorders. 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 He has never been a smoker. He rarely drinks alcohol and he exercises routinely. REVIEW OF SYSTEMS: Constitutional: No fevers or chills. He has increasing fatigue. Endocrine: No diabetes. He is on thyroid replacement. Hematologic: No recent easy bruising or bleeding. He has a history of anemia and uses Aranesp as needed based on his counts. He has two units of packed cells at the time of his right knee replacement. Respiratory: No dyspnea on exertion. No chronic cough. Cardiovascular: No anginal chest pain or palpitations. Gastrointestinal: No nausea, vomiting, diarrhea, GI bleeding, or constipation. Genitourinary: No dysuria. Musculoskeletal: Chronic back and joint pain. Neurologic: No headache, blurred vision or areas of focal weakness or numbness. General: No previous deep vein thrombosis or pulmonary embolism. With previous general anesthesia, he experienced vomiting. PHYSICAL EXAMINATION GENERAL: The patient is a 73-year-old male, well-developed, well-nourished, in no acute distress. VITAL SIGNS: Height 70.5 inches, weight 205 pounds, body mass index 29. Blood pressure 142/80, pulse 78 and regular, respiratory rate 18, temperature 98 tympanic. SKIN: Sallow, warm, and dry and intact. HEENT: Benign. NECK: Supple. No cervical lymphadenopathy. BACK: No CVA tenderness. LUNGS: Breath sounds bilaterally clear and equal. HEART: Regular rate and rhythm. No murmurs or rubs appreciated. ABDOMEN: Active bowel sounds. Soft, nondistended, nontender throughout. No obvious masses, organomegaly, or evidence of ventral hernia. EXTREMITIES: Warm without edema or skin ulceration. GENITALIA: As examined by Dr. Duran: No inguinal hernias are appreciated, testicles are normally descended. RECTAL: Exam deferred. NEUROLOGIC: Alert and oriented times three. Steady gait. IMPRESSION: End-stage renal disease. PLAN: Same Day Surgery admission to Dr. Duran's service on Sunday, 2017 for laparoscopic placement of buried peritoneal dialysis catheter. JORGE LUIS ROMERO, SIZING MACHINE OPERATOR [id number]/[facility] #: [id number] MANHATTAN PSYCHIATRIC CENTERFouzia
[~2018-01-30 07:56] MED LIST changes: +Buffered Lidocaine 0.9% SYRIN* 5 ML/SYR SYRINGE INTRADERM ONE; -Buffered Lidocaine 1% SYR 3ML* 3 ML/SYR SYRINGE INTRADERM ONE; +Cisatracurium* 2 MG/ML MDV 5 ML ONE; +Dexamethasone IV* 4 MG/ML 1 ML (4 MG) ONE; +Famotidine TAB* 20 MG PO ONE; +Lidocaine 2% PF * 5 ML VIAL ONE; +Midazolam* 1 MG/ML 5 ML VIAL (5 MG) ONE; +NS 0.45% 1000 ML BAG* 1,000 ML IV SCH; -NS 0.9% 1000 ML* 1,000 ML IV SCH; +Propofol* 10 MG/ML 20 ML BTL IV PUSH ONE; -Sodium Citrate/Citric Acid* 15 ML UDC PO ONE; +fentaNYL* 50 MCG/ML 2 ML VIAL (100 MCG VIAL) ONE
[2018-01-30] MEDS ORDERED: Famotidine TAB* 20 MG ONE (08:07)
[2018-01-30] MEDS ORDERED: Metoclopramide TAB* 10 MG ONE (08:08)
[2018-01-30] MEDS ORDERED: ceFAZolin 2 GM PREMIX (*) 2 GM/50 ML BAG IVPB ONE (08:08)
[2018-01-30] MEDS ORDERED: Bupivacaine 0.25% SDV* 30 ML ONE ×2 (08:28→09:42)
[2018-01-30] MEDS ORDERED: Heparin DIALYSIS ONLY(*) 1,000 UNITS/ML VIAL ONE (08:34)
[2018-01-30] MEDS ORDERED: EPHEDrine (Pressors)* 50 MG/ML VIAL ONE (09:17)
[2018-01-30] MEDS ORDERED: Ondansetron INJ* 2 MG/ML VIAL IV PRN (09:42)
[2018-01-30] MEDS ORDERED: Naloxone* 0.4 MG/ML 1 ML VIAL IV PRN (09:42)
[2018-01-30] MEDS ORDERED: oxyCODONE/Acetamin 5/325 MG* TAB PO PRN (09:42)
[2018-01-30] MEDS ORDERED: DiMENhydriNATE IV* 50 MG/ML VIAL IV PUSH PRN (09:42)
[2018-01-30] MEDS ORDERED: fentaNYL* 50 MCG/ML 2 ML VIAL (100 MCG VIAL) IV PRN (09:42)
[2018-01-30] MEDS ORDERED: Neostigmine Methylsulfate* 1 MG/ML 10 ML VIAL (1 mg/ml) ONE (09:54)
[2018-01-30] MEDS ORDERED: Glycopyrrolate IV* 0.2 MG/ML 1 ML VIAL ONE (09:54)
[2018-01-30 12:31] VITALS: BP 134/66
[2018-01-30] MEDS ORDERED: Acetaminophen TAB* 325 MG ONE (12:43)
--- NOTE | 2018-02-01 07:22 | OP ---
CC: Dr. Dion Da Silva; Dr. Luz Maria Lozano; [facility] * DATE OF OPERATION: 01/30/18 - [facility] DATE OF : 47 SURGEON: Khai Duran MD CCO: Maritza Stevens NP PRE-OP DIAGNOSIS: End-stage renal disease. POST-OP DIAGNOSIS: End-stage renal disease. OPERATIVE PROCEDURE: Laparoscopic peritoneal dialysis catheter placement, omentopexy. ESTIMATED BLOOD LOSS: Minimal. FLUIDS: Minimal crystalloid fluid given. SPECIMENS: None. INSTRUMENT: A 62 cm Curl Cath type peritoneal dialysis catheter placed. DESCRIPTION OF PROCEDURE: The patient was identified in the preoperative area. We marked both the abdomen and also at the belt line to assure placement of the peritoneal dialysis catheter. He was then brought to the operating room and placed on the operating table in supine position. Preoperative antibiotics were given. Sequential devices were placed on bilateral lower extremities. Porras catheter was inserted after general anesthesia. Patient's abdomen was clipped of hair, and prepped and draped in standard surgical fashion. A time- out was performed. A subcostal incision was made at the left upper quadrant. This was deepened down to the anterior fascia which was elevated and a Veress needle was inserted into the abdominal cavity which was then allowed to insufflate to a pressure of 15 mmHg. Patient tolerated the insufflation well. Veress needle was removed. An 8-mm trocar was inserted. Laparoscope was inserted through this and there was no evidence of injury. Review of the abdomen showed no free fluid, small bowel appeared intact. Omentum was moderate in size We also noted adhesions to anterior abdominal wall both on the right to the cecum and on the left to the sigmoid colon. These were sharply taken down with scissors and electrocautery. These adhesions were taken down with the sharps through a 5-mm trocar that was placed in the left lower quadrant. A 62 cm Curl Catheter was then inserted into the abdomen. He was placed in position in the pelvis. We then tunneled the 5-mm trocar through the left rectus muscle and grasped the tubing and brought it out through our incision making sure that the 2 cuffs tunneled with one just under the peritoneum in the musculature. Next, an omentopexy was performed with an 0 Polysorb suture using Endo Close device at the left upper quadrant incision. Next, we tunneled the catheter superiorly and then out the proposed incision at the left lower quadrant where the 5-mm trocar was placed. This was removed for this purpose. We ensured the dialysate which flowed freely and then drained freely, it was nonbloody. We then allowed the abdomen collapse. Trocars were removed under direct vision. All incisions were closed with 4-0 Monocryl subcuticular sutures. A 3-0 Prolene suture was used to pinch off the end of the tubing which was then inserted under the skin. All the incisions were closed with 4-0 Monocryl and followed by Steri-Strips and sterile dressing. The patient tolerated the procedure well, was woken up in the OR, and transferred to the PACU in stable condition. [id number]/[facility] #: [id number] RASHIDA
== END 2018-01-30 12:50 | disposition home or self-care (01) ==
LOC: OR 07:56
PROVIDERS: ATTEND Surgery
DX: N18.6 End stage renal disease (principal); K66.0 Peritoneal adhesions (postprocedural) (postinfection); I12.0 Hypertensive chronic kidney disease with stage 5 chronic kidney disease or end stage renal disease; D63.1 Anemia in chronic kidney disease; K21.0 Gastro-esophageal reflux disease with esophagitis; R07.89 Other chest pain; N40.0 Benign prostatic hyperplasia without lower urinary tract symptoms; E03.9 Hypothyroidism, unspecified; E21.3 Hyperparathyroidism, unspecified
CPT/HCPCS: 93005; A9270-GY; J0690; J1100; J1644; J2250; J2704; J2710; J3010

== ENCOUNTER → 2019-07-09 | Day surgery (SDC) | payer BC ==
[~2019-07-09] MED LIST changes: -Buffered Lidocaine 0.9% SYRIN* 5 ML/SYR SYRINGE INTRADERM ONE; -Cisatracurium* 2 MG/ML MDV 5 ML ONE; -Dexamethasone IV* 4 MG/ML 1 ML (4 MG) ONE; -Famotidine TAB* 20 MG PO ONE; +Lidocaine 1% w EPI 1:100,000* MDV 20 ML VIAL ONE; -Lidocaine 2% PF * 5 ML VIAL ONE; -Metoclopramide TAB* 10 MG PO ONE; -Midazolam* 1 MG/ML 5 ML VIAL (5 MG) ONE; -NS 0.45% 1000 ML BAG* 1,000 ML IV SCH; -Propofol* 10 MG/ML 20 ML BTL IV PUSH ONE; -fentaNYL* 50 MCG/ML 2 ML VIAL (100 MCG VIAL) ONE
[2019-07-09 16:05] VITALS: BP 159/84
--- NOTE | 2019-07-09 23:08 | OP ---
CC: [facility]; Dr. Luz Maria Lozano * DATE OF OPERATION: 07/09/19 - [facility] DATE OF : 47 SURGEON: Khai Duran MD HOUSEHOLD COOK: None. ANESTHESIA: Local. PREPROCEDURE DIAGNOSIS: End-stage renal disease. POSTPROCEDURE DIAGNOSIS: End-stage renal disease. OPERATIVE PROCEDURE: Exteriorization of peritoneal dialysis catheter. DRAINS: Peritoneal dialysis exteriorized and taped to the skin. DESCRIPTION OF PROCEDURE: The patient was identified in the preoperative area. His abdomen was marked, consent was signed. After the area was prepped, a time- out was performed. Injection of lidocaine was carried out and an incision was made. The silicon tubing was then brought out through this incision site. The distal tip of it had a silk suture, which we cut the tubing and connected it to the titanium couplet. We were able to insufflate sterilized saline with ease just with gravity drainage. We then taped to the skin and the patient was discharged home in stable condition. [id number]/[facility] #: [id number] RASHIDA
== END | disposition home or self-care (01) ==
LOC: OR 14:03
PROVIDERS: ATTEND Surgery
DX: N18.6 End stage renal disease (principal); I10 Essential (primary) hypertension; E03.9 Hypothyroidism, unspecified; E78.00 Pure hypercholesterolemia, unspecified; M19.90 Unspecified osteoarthritis, unspecified site; K21.9 Gastro-esophageal reflux disease without esophagitis; Z85.828 Personal history of other malignant neoplasm of skin; D64.9 Anemia, unspecified